=== PATIENT | male | born 1985 ===

== ENCOUNTER 2021-10-08 17:48 | Emergency (ER) | payer OTHER ==
[~2021-10-08] VITALS: Ht 167.6 cm; Wt 104.3 kg
[~2021-10-08 17:48] MED LIST: PROTONIX40 MG PO
[2021-10-08] MEDS ORDERED: TAMS0.4C PO (20:29)
[2021-10-08] MEDS ORDERED: KETO10TA2 PO (20:29)
[2021-10-08] MEDS ORDERED: CIPRO500 MG PO (20:29)
== END 2021-10-08 20:42 | disposition home or self-care (01) ==
LOC: ER 17:48
DX: N20.9 Urinary calculus, unspecified (principal)